=== PATIENT | female | born 1940 | race African-American/Black ===

== ENCOUNTER 2021-04-14 14:46 | Observation (INO) | payer OTHER ==
[2021-04-14 14:56] VITALS: BMI 20.9
[2021-04-14] MEDS ORDERED: SODIUM CHLORIDE 0.9% 500 ML INFUS.BAG IV ONE (17:05)
[2021-04-14 17:06] LABS: BASO % 0.6 % (0-2.0); EOS % 0.9 % (0-4.5); HEMATOCRIT 36.4 % (32.4-45.2); HEMOGLOBIN 12.3 GM/dL (10.7-15.3); LYMPH % 25.1 % (8-40); MCH 30.7 pg (25.7-33.7); MCHC 33.7 g/dl (32.0-36.0); MEAN CELL VOLUME 90.9 fl (80-96); MEAN PLT VOLUME 6.9 fl (7.5-11.1); MONO % 7.1 % (3.8-10.2); NEUT % 66.3 % (42.8-82.8); PLATELET COUNT 250 10^3/uL (134-434); RDW 15.2 % (11.6-15.6); WHITE BLOOD COUNT 7.8 K/mm3 (4.0-10.0)
[2021-04-14 17:16] LABS: INR 0.99 (0.83-1.09)
[2021-04-14 17:19] LABS: ACTIVATED PTT 30.8 SECONDS (25.2-36.5)
[2021-04-14 17:23] LABS: CHLORIDE 106 mmol/L (98-107); SODIUM 141 mmol/L (136-145)
[2021-04-14 17:25] LABS: CALCIUM 9.2 mg/dL (8.5-10.1)
[2021-04-14 17:26] LABS: ALBUMIN 3.7 g/dl (3.4-5.0); ANION GAP 8 MMOL/L (8-16); CO2 27 mmol/L (21-32); GLUCOSE,RANDOM 93 mg/dL (74-106)
[2021-04-14 17:29] LABS: SGOT/AST 13 U/L (15-37); SGPT/ALT 20 U/L (13-61)
[2021-04-14 17:31] LABS: BILIRUBIN,TOTAL 0.2 mg/dL (0.2-1); TOT PROT 7.5 g/dl (6.4-8.2)
[2021-04-14 17:32] LABS: ALK PHOS 161 U/L (45-117)
[2021-04-14 17:45] LABS: CREATININE 0.6 mg/dL (0.55-1.3)
[2021-04-14 18:50] LABS: URINE APPEARANCE Clear; URINE BILIRUBIN Negative (NEGATIVE); URINE COLOR Yellow; URINE GLUCOSE (UA) Negative (NEGATIVE); URINE KETONE Negative (NEGATIVE); URINE LEUK ESTERASE 1+ (NEGATIVE); URINE NITRITE Positive (NEGATIVE); URINE PROTEIN Negative (NEGATIVE); URINE UROBILINOGEN 0.2 mg/dL (0.2-1.0)
[2021-04-14] MEDS ORDERED: CEFTRIAXONE 1,000 MG in DEXTROSE 5%-WATER - 50 ML IVPB ONE (19:06)
[2021-04-14 20:12] LABS: EPI CELLS 8.7 /uL (0-25.1); URINE BACTERIA 1180.8 /uL (0-1359); URINE RBC 7.2 /uL (0-23.9); URINE WBC 22.4 /uL (0-25.8)
[2021-04-14] MEDS ORDERED: CEFTRIAXONE 1 GM/50 ML BAG ONE (20:15)
[2021-04-14] MEDS ORDERED: LOSARTAN POTASSIUM 50 MG TABLET PO ONE (21:36)
[2021-04-14] MEDS ORDERED: LOSARTAN POTASSIUM 50 MG TABLET ONE (22:29)
[2021-04-14] MEDS ORDERED: ATORVASTATIN CA 10 MG TABLET (FP) ONE (22:30)
[2021-04-14] MEDS: ATORVASTATIN CA 10 MG TABLET (FP) PO SCH (22:34)
[2021-04-15 06:01] LABS: BASO % 0.5 % (0-2.0); EOS % 1.6 % (0-4.5); HEMATOCRIT 37.9 % (32.4-45.2); HEMOGLOBIN 12.4 GM/dL (10.7-15.3); LYMPH % 22.1 % (8-40); MCH 30.2 pg (25.7-33.7); MCHC 32.7 g/dl (32.0-36.0); MEAN CELL VOLUME 92.5 fl (80-96); MEAN PLT VOLUME 7.3 fl (7.5-11.1); MONO % 7.2 % (3.8-10.2); NEUT % 68.6 % (42.8-82.8); PLATELET COUNT 252 10^3/uL (134-434); RBC 4.09 M/mm3 (3.60-5.2); RDW 15.3 % (11.6-15.6); WHITE BLOOD COUNT 7.9 K/mm3 (4.0-10.0)
[2021-04-15 06:23] LABS: CALCIUM 9.1 mg/dL (8.5-10.1)
[2021-04-15 06:24] LABS: ALBUMIN 3.6 g/dl (3.4-5.0); BLOOD UREA NITROGEN 12.8 mg/dL (7-18); MAGNESIUM 2.4 mg/dL (1.8-2.4)
[2021-04-15 06:27] LABS: CREATININE 0.7 mg/dL (0.55-1.3)
[2021-04-15 06:28] LABS: BILIRUBIN,TOTAL 0.2 mg/dL (0.2-1); TOT PROT 7.5 g/dl (6.4-8.2)
[2021-04-15] MEDS ORDERED: EFAVIRENZ 600 MG TABLET PO SCH ×2 (10:00→22:00)
[2021-04-15] MEDS ORDERED: CYANOCOBALAMIN (VITAMIN B-12) 1000 MCG/1 ML VIAL IM ONE (10:00)
[2021-04-15] MEDS ORDERED: PATIENT'S OWN MEDICATION (NON-FORMULARY) (Efavirenz/Emtricitab/Tenofovir 1 TAB Tab) PO SCH (10:00)
[2021-04-15] MEDS ORDERED: EMTRICITABINE 200MG/TENOFOVIR 300MG PO SCH ×2 (10:00→22:00)
[2021-04-15] MEDS ORDERED: cefTRIAXone SODIUM 1 GM VIAL ONE (10:02)
[2021-04-15] MEDS ORDERED: DEXTROSE 5%-WATER - 50 ML IVPB ONE (10:02)
[2021-04-15] MEDS: CEFTRIAXONE 1 GM in DEXTROSE 5%-WATER - 50 ML IVPB SCH (10:39)
[2021-04-15] MEDS: CALCIUM 500MG/VIT-D 200 UNITS COMBO TABLET (FP) PO SCH (10:40)
[2021-04-15] MEDS: ENOXAPARIN NA (PORCINE) 40 MG/0.4 ML DISP.SYRIN SQ SCH (10:40)
[2021-04-15] MEDS: amLODIPine BESYLATE 5 MG TABLET (FP) PO SCH (10:40)
[2021-04-15] MEDS: LOSARTAN POTASSIUM 50 MG TABLET PO SCH (10:40)
[2021-04-15] MEDS: ATORVASTATIN CA 10 MG TABLET (FP) PO SCH (21:58)
[2021-04-16 07:27] LABS: HEMATOCRIT 35.5 % (32.4-45.2); HEMOGLOBIN 11.8 GM/dL (10.7-15.3); MCH 30.2 pg (25.7-33.7); MCHC 33.1 g/dl (32.0-36.0); MEAN CELL VOLUME 91.3 fl (80-96); MEAN PLT VOLUME 7.4 fl (7.5-11.1); PLATELET COUNT 240 10^3/uL (134-434); RBC 3.89 M/mm3 (3.60-5.2); RDW 15.2 % (11.6-15.6); WHITE BLOOD COUNT 6.9 K/mm3 (4.0-10.0)
[2021-04-16 07:54] LABS: CALCIUM 8.7 mg/dL (8.5-10.1)
[2021-04-16 07:55] LABS: ALBUMIN 3.2 g/dl (3.4-5.0); BLOOD UREA NITROGEN 17.7 mg/dL (7-18); MAGNESIUM 2.2 mg/dL (1.8-2.4)
[2021-04-16 07:58] LABS: PHOSPHOROUS 3.1 mg/dL (2.5-4.9)
[2021-04-16 07:59] LABS: BILIRUBIN,TOTAL 0.3 mg/dL (0.2-1); TOT PROT 6.7 g/dl (6.4-8.2)
[2021-04-16 08:03] LABS: CREATININE 0.7 mg/dL (0.55-1.3)
[2021-04-16] MEDS: ENOXAPARIN NA (PORCINE) 40 MG/0.4 ML DISP.SYRIN SQ SCH (09:05)
[2021-04-16] MEDS: LOSARTAN POTASSIUM 50 MG TABLET PO SCH (09:05)
[2021-04-16] MEDS: amLODIPine BESYLATE 5 MG TABLET (FP) PO SCH (09:05)
[2021-04-16] MEDS: CALCIUM 500MG/VIT-D 200 UNITS COMBO TABLET (FP) PO SCH (09:05)
[2021-04-16] MEDS ORDERED: DEXTROSE 5%-WATER - 50 ML IVPB ONE (09:16)
[2021-04-16] MEDS ORDERED: cefTRIAXone SODIUM 1 GM VIAL ONE (09:16)
[2021-04-16] MEDS: CEFTRIAXONE 1 GM in DEXTROSE 5%-WATER - 50 ML IVPB SCH (11:18)
[2021-04-16 15:34] VITALS: BP 146/68; PULSE 85; TEMP 98.1
== END 2021-04-16 18:01 | disposition home or self-care (01) ==
LOC: JER 14:46 → JERBED 20:06 → UNDOADMOB 20:06 → JERBED 21:33 → INTOOBSV 21:33 → OBSVTOIN 21:33 → J4W 04-15 09:49 → JERBED 04-15 09:49 → J4W 04-15 09:49
PROVIDERS: ADMIT Hospitalist; ATTEND Student in an Organized Health Care Education/Training Program
PROC: 3E03329 Introduction of Other Anti-infective into Peripheral Vein, Percutaneous Approach (ICD-10-PCS; principal; 2021-04-14)
PROC: 3E023GC Introduction of Other Therapeutic Substance into Muscle, Percutaneous Approach (ICD-10-PCS; 2021-04-14)
PROC: 3E0337Z Introduction of Electrolytic and Water Balance Substance into Peripheral Vein, Percutaneous Approach (ICD-10-PCS; 2021-04-14)
DX: N39.0 Urinary tract infection, site not specified (principal); I10 Essential (primary) hypertension; Z21 Asymptomatic human immunodeficiency virus [HIV] infection status; R53.1 Weakness; E78.5 Hyperlipidemia, unspecified; R35.0 Frequency of micturition; R39.15 Urgency of urination; Z29.9 Encounter for prophylactic measures, unspecified
CPT/HCPCS: 36415; 70450-TC; 71046-TC-FY; 80053; 80061; 80307; 81003; 82550; 82607; 82746; 83036; 83721; 83735; 84100; 84443; 84484; 85025; 85027; 85610; 85730; 87086; 87186; 93005; 93010; 93306-TC; 93880-TC; 96361; 96365; 96372; 96375; 97116-GP; 97161-GP; 99285-25; C9803; G0378; U0003; U0005